=== PATIENT | male | born 1970 | race Caucasian/White ===

== ENCOUNTER → 2016-10-17 | Outpatient (CLI) | payer BC ==
--- NOTE | 2016-10-17 16:33 | PN ---
DATE OF SERVICE: 10/17/2016 46-year-old gentleman who has been followed in the sleep center for treatment of obstructive sleep apnea/hypopnea syndrome. Apnea-hypopnea index 13.1. Recently patient had CPAP titration received his new CPAP unit. Recommended pressure in the unit is 13 cm of water. Patient is able to use equipment every night had a little bit problem with his mask. I reviewed results of reading from his machine. Usage of the machine is 100% of the time and 93% of the time for more than 4 hours per night. Average usage is 5 hours 54 minutes. Leak is 15.4 L/min, which is acceptable. Apnea-hypopnea index for the last month is 0.3. MEDICATIONS: 1. Metformin. 2. Cozaar. 3. Lopressor. 4. Medications for hyperlipidemia. [place] Sleepiness Scale today is 10. During physical exam, the patient in no distress. VITAL SIGNS: BP 142/76, HR 76, RR 16. Weight of 291. Temp 98.6. Oxygen saturation at room air 97%. HEENT: PERRLA, EOMI evaluation of oropharynx extremely low position of soft palate. NECK: Supple. No JVD. Thyroid is not palpable. LUNGS: Clear to percussion and to auscultation. Good air exchange. No wheezing or rhonchi. HEART: S1, S2 regular. No murmurs, gallops or rubs. ABDOMEN: Obese. Soft and nontender. Bowel sounds are present. No organomegaly appreciated. EXTREMITIES: No clubbing or cyanosis. CORPORATE PILOT: Awake, alert, and oriented x3. Cranial nerves 2 to 7 intact. There is no fasciculation or atrophy noted. No focal deficits observed. IMPRESSION: 1. Obstructive sleep apnea/hypopnea syndrome on control with CPAP at the pressure of 13 cm of water. Patient demonstrated very good compliance with treatment benefiting from treatment. 2. Extremely severe periodic limb movements during titration, but the patient does not wake significantly from the leg movements at the present time, possibly does not need any pharmacotherapy. 3. Hypertension. 4. Diabetes mellitus. 5. Hyperlipidemia. 6. Coronary artery disease, status post coronary artery bypass graft. 7. Status post nasal surgery. 8. Status post right hip replacement. 9. Status post right knee surgery. PLAN: 1. Continue treatment with CPAP every night for the whole night. 2. Prescription for [place] full face mask. 3. Losing weight. 4. Sleep hygiene with regular time in bed for at least 8 hours. 5. No driving if feeling any sleepiness. Thank you very much for allowing me to participate in the management your patient. Sincerely, Rajat Baker MD, PhD, FAASM. Diplomat of [place] [employer], Sleep Medicine Board by [place] [employer] [place] [employer] Member of [facility] [place]
== END | disposition home or self-care (01) ==
LOC: SLEEP 13:30
PROVIDERS: ATTEND Internal Medicine
DX: G47.33 Obstructive sleep apnea (adult) (pediatric) (principal); I10 Essential (primary) hypertension; E11.9 Type 2 diabetes mellitus without complications; E78.5 Hyperlipidemia, unspecified; I25.10 Atherosclerotic heart disease of native coronary artery without angina pectoris; Z95.5 Presence of coronary angioplasty implant and graft; Z96.641 Presence of right artificial hip joint; Z98.890 Other specified postprocedural states; Z79.899 Other long term (current) drug therapy

== ENCOUNTER 2022-12-26 07:03 | Day surgery (SDC) | payer BC ==
[2022-12-23 11:30] VITALS: BMI 36.3
[2022-12-26] MEDS ORDERED: LACTATED RINGERS 1,000 ML IV ONE (07:27)
[2022-12-26] MEDS ORDERED: LACTATED RINGERS 1,000 ML IV SCH (07:28)
[2022-12-26 07:37] VITALS: RESP 16; TEMP 98
[2022-12-26 08:01] LABS: Glucose,Whole Blood 83 mg/dL (70-110)
[2022-12-26] MEDS ORDERED: PROPOFOL 10 MG/ML 20 ML VIAL IV ONE (08:03)
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
--- NOTE | 2022-12-26 08:15 | P.OP ---
Date of Procedure: 12/26/22 Preoperative Diagnosis: Screening colonoscopy Postoperative Diagnosis: Mild diverticulosis Procedure(s) Performed: Colonoscopy Anesthesia: MAC Surgeon: Volodymyr Gutierrez Pathology: none sent Condition: stable Disposition: PACU Description of Procedure: Patient's placed on the endoscopy table in the lateral position. He received IV sedation. Digital rectal exam was performed. This revealed no abnormalities. The prostate was symmetrical without nodules. Flexible colonoscope was then placed patient anus and passed throughout the entire colon. The ileocecal valve was visualized. Cecum, ascending and transverse colon appeared normal. In the descending and sigmoid there was mild diverticular changes. Scope was brought back the rectum this appeared normal. Scope withdrawn for patient.
[2022-12-26 08:34] VITALS: BP 113/68; PULSE 68
== END 2022-12-26 09:00 | disposition home or self-care (01) ==
LOC: ORWHC2ENDO 07:03
PROVIDERS: ATTEND Surgery
DX: Z12.11 Encounter for screening for malignant neoplasm of colon (principal); K57.30 Diverticulosis of large intestine without perforation or abscess without bleeding; I25.10 Atherosclerotic heart disease of native coronary artery without angina pectoris; E11.9 Type 2 diabetes mellitus without complications; E78.5 Hyperlipidemia, unspecified; G47.33 Obstructive sleep apnea (adult) (pediatric); I10 Essential (primary) hypertension; Z95.1 Presence of aortocoronary bypass graft; Z87.891 Personal history of nicotine dependence; Z86.59 Personal history of other mental and behavioral disorders; Z79.82 Long term (current) use of aspirin; Z79.84 Long term (current) use of oral hypoglycemic drugs; Z79.899 Other long term (current) drug therapy; Z98.890 Other specified postprocedural states
CPT/HCPCS: 45378; J2704